=== PATIENT | male | born 1995 | race Two or more races ===

== ENCOUNTER 2022-03-12 18:49 | Emergency (ER) | payer SELFPAY ==
[2022-03-12] MEDS ORDERED: Ondansetron 4 MG Tab.DIS PO ONE (19:45)
== END 2022-03-12 21:05 | disposition home or self-care (01) ==
LOC: FB.ED 18:49
DX: A08.4 Viral intestinal infection, unspecified (principal); Z20.822 Contact with and (suspected) exposure to COVID-19
CPT/HCPCS: 87635; 87651; 99284; Q0162; U0002

== ENCOUNTER 2024-02-21 15:55 | Emergency (ER) | payer SELFPAY ==
[2024-02-21] MEDS ORDERED: Ondansetron 4 MG Tab.DIS PO ONE (15:56)
[2024-02-21] MEDS: Ondansetron 4 MG Tab.DIS PO ONE (16:40)
[2024-02-21 16:52] LABS: BASOPHILS ABSOLUTE AUTO 0.1 x10-3/uL (0.0-0.3); BASOPHILS PERCENT AUTO 0.5 % (0.3-3.8); EOSINOPHILS ABSOLUTE AUTO 0.2 x10-3/uL (0.0-0.6); EOSINOPHILS PERCENT AUTO 2.2 % (0.1-6.8); HEMATOCRIT 46.1 % (38.3-50.1); HEMOGLOBIN 15.7 g/dL (12.9-17.7); LYMPHOCYTES ABSOLUTE AUTO 3.1 x10-3/uL (0.5-4.5); LYMPHOCYTES PERCENT AUTO 30.5 % (15.8-45.3); MEAN CORPUSCULAR HEMOGLOBIN 30.6 pg (27.0-33.3); MEAN CORPUSCULAR HGB CONC 34.1 g/dL (28.7-35.3); MEAN CORPUSCULAR VOLUME 89.6 fL (80.8-98.7); MEAN PLATELET VOLUME 8.7 fL (6.7-11.0); MONOCYTES ABSOLUTE AUTO 0.6 x10-3/uL (0.0-1.2); MONOCYTES PERCENT AUTO 6.2 % (5.5-15.2); NEUTROPHILS ABSOLUTE AUTO 6.2 x10-3/uL (1.7-6.9); NEUTROPHILS PERCENT AUTO 60.6 % (40.3-71.8); PLATELET COUNT,PLT 210 x10(3)uL (117-477); RED BLOOD CELL COUNT 5.15 x10(6)uL (3.90-5.90); RED CELL DISTRIBUTION WIDTH 13.2 % (12.4-15.0); WHITE BLOOD CELL COUNT,WBC 10.2 x10-3/uL (3.2-10.1)
[2024-02-21 16:59] LABS: BLOOD UREA NITROGEN,BUN 18 mg/dL (7-18); CALCIUM 8.5 mg/dL (8.6-10.2); CARBON DIOXIDE,CO2 26 mmol/L (21-32); CHLORIDE,CL 106 mmol/L (100-110); EST CRCL DRUG DOSING (CG) 123.18 mL/min; ESTIMATED GFR 104 mL/min (>60); GLUCOSE RANDOM 84 mg/dL (80-116); POTASSIUM,K 4.6 mmol/L (3.5-5.3); SODIUM,NA 141 mmol/L (135-145)
[2024-02-21 17:05] LABS: ALANINE AMINOTRANSFERASE,ALT 28 U/L (12-36); ALBUMIN 3.6 g/dL (3.5-5.2); ALKALINE PHOSPHATASE 120 IU/L (56-112); ASPARTATE AMNIOTRANSFERASE,AST 17 IU/L (5-25); BILIRUBIN TOTAL 0.5 mg/dL (0.1-1.3); PROTEIN TOTAL,TP 7.1 g/dL (6.0-8.0)
[2024-02-21 17:38] LABS: BILIRUBIN,URINE NEGATIVE (NEGATIVE); GLUCOSE,URINE NORMAL (NORMAL); KETONES,URINE NEGATIVE (NEGATIVE); LEUKOCYTE ESTERASE,URINE NEGATIVE (NEGATIVE); NITRITE,URINE NEGATIVE (NEGATIVE); OCCULT BLOOD,URINE NEGATIVE (NEGATIVE); PROTEIN,URINE NEGATIVE (NEGATIVE); UROBILINOGEN,URINE NORMAL (NEGATIVE)
[2024-02-21 17:46] LABS: APPEARANCE,URINE CLEAR (CLEAR); BACTERIA,URINE FEW (NS); COLOR,URINE YELLOW (YELLOW); SQUAMOUS EPITHELIAL CELLS,UR OCCASIONAL (NS,R,O)
== END 2024-02-21 18:15 | disposition home or self-care (01) ==
LOC: FB.ED 15:55
DX: K52.9 Noninfective gastroenteritis and colitis, unspecified (principal)
CPT/HCPCS: 36415; 80053; 81001; 85025; 86140; 99284; Q0162

== ENCOUNTER 2024-03-04 21:39 | Emergency (ER) | payer SELFPAY ==
[2024-03-04] MEDS: Amoxicillin/Clavulanate K 875-125 MG Tab PO ONE (22:12)
[2024-03-04] MEDS: Lidocaine 2% Viscous Solution 15 ML UD PO ONE (22:12)
== END 2024-03-04 22:30 | disposition home or self-care (01) ==
LOC: FB.ED 21:39
DX: K04.7 Periapical abscess without sinus (principal)
CPT/HCPCS: 99282; 99283; A9270

== ENCOUNTER 2024-09-14 02:28 | Emergency (ER) | payer MEDICAID ==
[2024-09-14] MEDS ORDERED: Amoxicillin/Clavulanate K 875-125 MG Tab PO ONE (02:29)
[2024-09-14] MEDS: Lidocaine 2% Viscous Solution 15 ML UD PO ONE (02:55)
== END 2024-09-14 03:00 | disposition home or self-care (01) ==
LOC: FB.ED 02:28
DX: K02.9 Dental caries, unspecified (principal); K04.7 Periapical abscess without sinus
CPT/HCPCS: 99282; 99283; A9270-GY

== ENCOUNTER 2024-10-08 21:17 | Emergency (ER) | payer MEDICAID | END 2024-10-08 22:29 | disposition home or self-care (01) | LOC: FB.ED 21:17 | DX: S30.1XXA Contusion of abdominal wall, initial encounter (principal); V18.0XXA Pedal cycle driver injured in noncollision transport accident in nontraffic accident, initial encounter; Y93.55 Activity, bike riding | CPT/HCPCS: 74176; 99283; 99284 ==

== ENCOUNTER 2024-10-10 21:12 | Emergency (ER) | payer OTHER, MEDICAID | END 2024-10-10 21:36 | disposition home or self-care (01) | LOC: FB.ED 21:12 | DX: S30.1XXA Contusion of abdominal wall, initial encounter (principal); V29.91XA Electric (assisted) bicycle rider (driver) (passenger) injured in unspecified traffic accident, initial encounter | CPT/HCPCS: 99283 ==

== ENCOUNTER 2024-10-29 18:26 | Emergency (ER) | payer MEDICAID | END 2024-10-29 19:59 | disposition home or self-care (01) | LOC: FB.ED 18:26 | DX: S82.401A Unspecified fracture of shaft of right fibula, initial encounter for closed fracture (principal); Z79.899 Other long term (current) drug therapy; X50.1XXA Overexertion from prolonged static or awkward postures, initial encounter | CPT/HCPCS: 73130-LT; 73610-RT; 99283 ==

== ENCOUNTER 2025-01-11 22:00 | Emergency (ER) | payer MEDICAID ==
[2025-01-11 22:47] LABS: BASOPHILS ABSOLUTE AUTO 0.1 x10-3/uL (0.0-0.3); BASOPHILS PERCENT AUTO 0.5 % (0.3-3.8); EOSINOPHILS ABSOLUTE AUTO 0.3 x10-3/uL (0.0-0.6); EOSINOPHILS PERCENT AUTO 2.6 % (0.1-6.8); LYMPHOCYTES ABSOLUTE AUTO 3.9 x10-3/uL (0.5-4.5); LYMPHOCYTES PERCENT AUTO 34.6 % (15.8-45.3); MEAN PLATELET VOLUME 8.8 fL (6.7-11.0); MONOCYTES ABSOLUTE AUTO 0.7 x10-3/uL (0.0-1.2); MONOCYTES PERCENT AUTO 6.3 % (5.5-15.2); NEUTROPHILS ABSOLUTE AUTO 6.4 x10-3/uL (1.7-6.9); NEUTROPHILS PERCENT AUTO 56.0 % (40.3-71.8); PLATELET COUNT,PLT 192 x10(3)uL (117-477); RED BLOOD CELL COUNT 5.24 x10(6)uL (3.90-5.90); RED CELL DISTRIBUTION WIDTH 14.0 % (12.4-15.0); WHITE BLOOD CELL COUNT,WBC 11.4 x10-3/uL (3.2-10.1)
[2025-01-11] MEDS: Ketorolac 30 MG/ML SDV IVPUSH ONE (22:47)
[2025-01-11 22:53] LABS: BLOOD UREA NITROGEN,BUN 14 mg/dL (7-18); CARBON DIOXIDE,CO2 29 mmol/L (21-32); CHLORIDE,CL 109 mmol/L (100-110); CREATININE 1.0 mg/dL (0.70-1.30); EST CRCL DRUG DOSING (CG) 118.56 mL/min; ESTIMATED GFR 104 mL/min (>60); GLUCOSE RANDOM 99 mg/dL (80-116); POTASSIUM,K 5.5 mmol/L (3.5-5.3); SODIUM,NA 142 mmol/L (135-145)
[2025-01-11 22:59] LABS: A/G RATIO 1.1; ALANINE AMINOTRANSFERASE,ALT 44 U/L (12-36); ASPARTATE AMNIOTRANSFERASE,AST 30 IU/L (5-25); BILIRUBIN TOTAL 0.6 mg/dL (0.1-1.3); PROTEIN TOTAL,TP 6.6 g/dL (6.0-8.0)
[2025-01-11 23:00] LABS: GLUCOSE,URINE NORMAL (NORMAL); OCCULT BLOOD,URINE NEGATIVE (NEGATIVE)
[2025-01-11 23:01] LABS: APPEARANCE,URINE CLEAR (CLEAR)
[2025-01-11] MEDS: Iopamidol 755 Mg/ML 100 ML Bottle IV ONE (23:15)
== END 2025-01-11 23:55 | disposition home or self-care (01) ==
LOC: FB.ED 22:00
DX: R10.11 Right upper quadrant pain (principal); R11.2 Nausea with vomiting, unspecified
CPT/HCPCS: 36415; 74177; 80053; 81003; 83690; 85025; 96361; 96374; 99284-25; J1885; J7030; Q9967